=== PATIENT | female | born 1980 | race Two or more races ===

== ENCOUNTER 2016-11-17 11:34 | Emergency (ER) | payer BC ==
[~2016-11-17] VITALS: Ht 152.4 cm; Wt 65.6 kg
[2016-11-17 11:38] VITALS: BP 120/87; PULSE 88; RESP 16; TEMP 98.1; O2SAT 99
[2016-11-17] MEDS ORDERED: AMOX875T PO (11:48)
[2016-11-17] MEDS ORDERED: TRAM50TA PO (11:48)
[2016-11-17] MEDS ORDERED: IBUP800T23 PO (11:48)
--- NOTE | 2016-11-17 11:51 | PD ---
HPI Chief Complaint: Oral / Dental Pain or Problem Time Seen by Provider: 11:48 Travel History International Travel<30 days: No Contact w/Intl Traveler<30days: No Traveled to known affect area: No History of Present Illness HPI 36-year-old female that presents to the ED for evaluation of possible dental infection. Patient states that she's had this since yesterday. Per patient she was hoping she could wait until Saturday to see a dentist that the pain and the swelling seems to be getting worse so she came here. She denies any trauma. She does state that she has bad dentition. She smokes. States that the pain comes and goes and is 7 out of 10. She's been taking Motrin with minimal relief. Denies any fevers chills or sweats. No history of immunosuppression. No allergies to medication. No other medical problems. Pain is achy and at this time is 4 out of 10. PFSH Past Medical History Medical History: Denies Significant Hx Diminished Hearing: No Tetanus Vaccination: > 5 Years Influenza Vaccination: No ?: Not LMP: LAST WEEK Past Surgical History Surgical History: No Previous Surgery Social History Alcohol Use: Yes (occasional) Tobacco Use: Yes (ppd) Substance Use: No Allergies-Medications (Allergen,Severity, Reaction): Coded Allergies: No Known Allergies (Unverified , 11/17/16) Review of Systems Except as stated in HPI: all other systems reviewed are Neg Physical Exam Narrative GENERAL: SKIN: Warm and dry. HEAD: Atraumatic. Normocephalic. EYES: Pupils equal and round. No scleral icterus. No injection or drainage. ENT: No nasal bleeding or discharge. Mucous membranes pink and moist. Tongue is midline. No uvula deviation. Dental: Patient has bad dentition noted throughout. Patient does have a cavity to the first molar of the right lower jaw. Some swelling on the gum but no sign of purulence or induration. Most of the swelling noted more on the right cheek. No obvious purulence. No other deformity noted. NECK: Trachea midline. No JVD. CARDIOVASCULAR: Regular rate and rhythm. RESPIRATORY: No accessory muscle use. Clear to auscultation. Breath sounds equal bilaterally. GASTROINTESTINAL: Abdomen soft, non-tender, nondistended. Hepatic and splenic margins not palpable. MUSCULOSKELETAL: Extremities without clubbing, cyanosis, or edema. No obvious deformities. NEUROLOGICAL: Awake and alert. No obvious cranial nerve deficits. Motor grossly within normal limits. Five out of 5 muscle strength in the arms and legs. Normal speech. PSYCHIATRIC: Appropriate mood and affect; insight and judgment normal. Data Data Last Documented VS Vital Signs Date Time Temp Pulse Resp B/P Pulse Ox O2 Delivery O2 Flow Rate FiO2 11/17/16 11:38 98.1 88 16 120/87 99 MDM Medical Decision Making Medical Screen Exam Complete: Yes Emergency Medical Condition: Yes Medical Record Reviewed: Yes Differential Diagnosis Dental abscess versus dental infection versus dentalgia Narrative Course 36-year-old female that presents to the ED for evaluation of dental infection. Patient was properly examined and was found to have signs and symptoms consistent appears to be a dental infection with cavity. At this time recommend treatment with pain medication including tramadol and ibuprofen and amoxicillin for antibiotic prophylaxis. I do recommend she follows up with her dentist on Saturday showed he had planned so she can have definitive treatment of the infection in the cavity. She is in agreement. Follow with PCP. See ED worsening symptoms. Diagnosis Primary Impression: Dental infection Patient Instructions: General Instructions Additional Instructions: Take medications as prescribed. Follow-up with dentist on saturday See ED for any worsening symptoms. Do not drink or drive while taking pain medication. Apply ice or heat as needed for pain Med/Other Pt SpecificInfo: Prescription(s) given Scripts Amoxicillin 875 Mg [id number] Mg PO BID 10 Days Prov:Larry Byrd MD 11/17/16 Ibuprofen 800 Mg [id number] Mg PO Q8H PRN (Pain/Inflammation) #30 TAB Prov:Larry Byrd MD 11/17/16 Tramadol 50 Mg Tab50 Mg PO Q6H PRN (PAIN) #15 TAB Ref 0 Prov:Larry Byrd MD 11/17/16 Disposition: 01 DISCHARGE HOME Condition: Stable Alexei Mondragon Nov 17, 2016 11:51
== END 2016-11-17 11:59 | disposition home or self-care (01) ==
LOC: PHEFT 11:34
DX: K08.89 Other specified disorders of teeth and supporting structures (principal); F17.200 Nicotine dependence, unspecified, uncomplicated
CPT/HCPCS: 99282